=== PATIENT | female | born 1985 | race Caucasian/White ===

== ENCOUNTER 2023-02-09 10:59 | Emergency (ER) | payer OTHER ==
[~2023-02-09] VITALS: Ht 167.6 cm; Wt 68.0 kg
[2023-02-09 11:09] VITALS: BP 146/90; PULSE 83; RESP 18; TEMP 99.3; O2SAT 99
== END 2023-02-09 12:13 | disposition left against medical advice (07) ==
LOC: ER 11:00
DX: M54.50 Low back pain, unspecified (principal); Z53.21 Procedure and treatment not carried out due to patient leaving prior to being seen by health care provider
CPT/HCPCS: 99281